=== PATIENT | female | born 1960 | race Caucasian/White ===

== ENCOUNTER 2025-07-26 06:28 | Day surgery (SDC) | payer BC ==
[2025-07-26] MEDS ORDERED: Lactated Ringers 1,000 ML IV ONE (06:29)
[2025-07-26] MEDS ORDERED: Propofol 200 MG/20 ML SDV IV ONE (06:29)
[2025-07-26] MEDS: Lactated Ringers 1,000 ML IV SCH (07:13)
[2025-07-26] MEDS ORDERED: Propofol 200 MG/20 ML SDV ONE (10:05)
== END 2025-07-26 08:56 | disposition home or self-care (01) ==
LOC: DL.ENDO 06:28
PROVIDERS: ATTEND Internal Medicine Gastroenterology
DX: Z12.11 Encounter for screening for malignant neoplasm of colon (principal); D12.0 Benign neoplasm of cecum; K57.30 Diverticulosis of large intestine without perforation or abscess without bleeding; E11.9 Type 2 diabetes mellitus without complications; E78.5 Hyperlipidemia, unspecified; E66.9 Obesity, unspecified; I10 Essential (primary) hypertension; E03.9 Hypothyroidism, unspecified; Z91.030 Bee allergy status; Z88.1 Allergy status to other antibiotic agents; Z88.8 Allergy status to other drugs, medicaments and biological substances; E66.09 Other obesity due to excess calories; Z68.29 Body mass index [BMI] 29.0-29.9, adult; Z79.899 Other long term (current) drug therapy
CPT/HCPCS: 45385; 82947; J2704; J7120; S5010; 00811